=== PATIENT | female | born 1985 | race Caucasian/White ===

== ENCOUNTER 2021-10-01 15:31 | Emergency (ER) | payer OTHER, SELFPAY ==
[2021-10-01 17:22] VITALS: BP 119/70; PULSE 65; RESP 18; TEMP 36.9; O2SAT 100; BMI 32.5
[2021-10-01 17:42] LABS: MANUAL DIFF FLAG NO
--- NOTE | 2021-10-01 17:42 | ED_ITS ---
HPI - Recheck/Abnormal Lab/Rx General Chief Complaint: Recheck/Abnormal Lab/Rx Stated Complaint: dr sent over, pancreitis? Time Seen by Provider: 10/01/21 17:24 Source: patient Mode of arrival: ambulatory Limitations: no limitations History of Present Illness HPI narrative: Patient is a 36 year old female presenting to the emergency department today with a possible abnormal lab value. Patient states that she was called and told that she had elevated Lipase and she should report to the ED. Patient denies any dizziness, lightheadedness, abdominal pain, nausea, vomiting, fever, chills, blurry vision, double vision, loss of vision, chest pain, difficulty breathing, shortness of breath, back pain, night sweats, pain with urination, increased urinary frequency, increased urinary urgency, blood in her urine or stool, syncope or a near syncopal episode, recent trauma or falls, bowel incontinence, bladder incontinence, bowel retention, bladder retention, or any other complaints at this time. Patient states that she was having nausea and vomiting a few days ago but that has completely resolved now and she is able to eat and drink without any issue. Related Data Allergies Allergy/AdvReac Type Severity Reaction Status Date / Time gabapentin [GABAPENTIN] Allergy Unknown SWELLING Verified 10/01/21 17:21 Review of Systems Constitutional: Constitutional: Reports no additional constitutional complaints, Denies chills, Denies fever(s) and Denies night sweats Eyes: Eyes: Reports no additional eye complaints, Denies blurry vision, Denies change in vision, Denies diplopia, Denies eye discharge, Denies loss of vision and Denies eye pain ENT: Denies dizziness Cardiovascular: Cardiovascular: Reports no additional cardiovascular complaints, Denies chest pain, Denies lightheadedness, Denies Loss of Consciousness and Denies dyspnea Respiratory: Respiratory: Reports no additional respiratory complaints and Denies dyspnea Gastrointestinal: Gastrointestinal: Reports no additional gastrointestinal complaints, Denies abdominal pain, Denies melena, Denies hematochezia, Denies change in bowel habits and Denies change in stool character Genitourinary: Genitourinary: Denies hematuria, Denies urinary frequency, Denies dysuria, Denies urinary incontinence, Denies urinary hesitancy and Denies urinary urgency Musculoskeletal: Musculoskeletal: Reports no additional musculoskeletal c omplaints, Denies numbness and Denies tingling Neurologic: Denies dizziness, Denies loss of vision, Denies numbness and Denies tingling Psychiatric: Psychiatric: Reports no additional psychiatric complaints Endocrine: Endocrine: Reports no additional endocrine complaints Hematologic/Lymphatic: Hematologic/Lymphatic: Reports no additional hematologic/lymphatic complaints Allergic/Immunologic: Allergic/Immunologic: Reports no additional allergic/immunologic complaints [facility] Past Medical History Attestation statement: The following information was validated with the patient. Source: old records reviewed Social History Social History Advance Directives: No Advance Directives Information Provided: No Patient : No Physical Exam Vital Signs: Vital Signs: Last Vital Signs Temp 98.5 F 10/01/21 17: Pulse 65 10/01/21 17:22 Resp 18 10/01/21 17:22 BP 119/70 10/01/21 17:22 Pulse Ox 100 10/01/21 17:22 BMI result Body Mass Index 32.5 Const: General: cooperative, no acute distress, alert and awake Nutritional Appearance: well nourished Orientation/consciousness: patient oriented x3 Limitations: no limitations HENMT: Head: Yes normal to inspection and Yes atraumatic Ears: hearing grossly normal bilaterally and external ears normal General nose exam: Normal external nose present, no nasal discharge noted and no epistaxis Face and sinus: Yes normal facial exam, No abrasion and No laceration Mouth: Normal oral and palatal mucosa present, no drooling and no muffled voice Eyes: General: appearance normal, both eyes and all related structures Periorbital: periorbital findings normal Eyelids: Yes eyelids normal Conjunctivae: conjunctivae normal Pupils: Equal, round and reactive pupils present EOM: EOMs intact bilaterally Neck: Neck: Yes normal visual inspection, Yes full ROM and Yes no lymphadenopathy Chest: Chest palpation & inspection: normal inspection of the chest Resp: Effort & Inspection: normal respiratory effort and able to speak in complete sentences Auscultation: clear to auscultation bilaterally Cardio: Rate: regular rate Rhythm: regular rhythm GI: Inspection: Yes normal to inspection Palpation (GI): Soft to palpation, not firm and nontender Auscultation: normal bowel sounds Neuro: General: patient oriented x3 and moves all extremities Cranial nerves: Yes Equal, round and reactive pupils present Cognition (Neuro): normal cognition Motor exam (neuro): 5/5 motor strength present throughout Sensory Exam: Normal double simultaneous stimulation for sensation Coordination: [id number] test normal Extrem: General: Yes normal to inspection, Yes full ROM and Yes capillary refill normal Psych: Appearance: grossly normal Mental Status: mental status grossly normal Affect: normal affect Attitude: cooperative Thought process: Normal thought process present Thought content: Normal thought content present Insight: Good insight present (Psych) MDM - Recheck/Abnormal Lab/Rx MDM Narrative Medical decision making narrative: Patient is a 36 year old female presenting to the emergency department today with a possible elevated lipase. Patient's physical exam was unremarkable. Patient's blood work was unremarkable, including a normal lipase level. I explained my physical exam findings as well as all test results to the patient. I answered all questions asked by the patient. I stressed the importance of the patient taking her medication as prescribed. I stressed the importance of the patient following up with her primary care provider. I stressed the importance of the patient returning to the emergency department immediately if she were to develop any dizziness, shortness of breath, difficulty breathing, chest pain, blurry vision, loss of vision, nausea, vomiting, abdominal pain, fever, chills, back pain, or any other complaints. Patient verbalized agreement and understanding with this treatment plan and discharge. Differential Diagnosis Differential diagnosis: Unlikely encounter for medication refill (abnormal labs) Medical Records Attestation: I reviewed the patient's medical records. Lab Data Attestation: I reviewed the patient's lab results. Result diagrams: 10/01/21 17:30 10/01/21 17:30 Labs: Lab Results 10/01/21 10/01/21 Range/Units 17:30 17:30 WBC 7.7 (4.8-10.8) X10*3/uL RBC 4.28 (4.20-5.50) X10*6/uL Hgb 12.2 (12.0-16.0) g/dl Hct 38.4 (37.0-47.0) % MCV 89.7 (80.0-98.0) fL MCH 28.5 (27.0-33.0) pg MCHC 31.8 (31.0-35.0) g/dl RDW 13.8 (11.0-16.0) % Plt Count 264 (160-400) X10*3/uL MPV 11.0 (9.4-12.3) fL Immature Gran % (Auto) 0.3 (0.0-0.4) % Neut % (Auto) 62.2 (45-73) % Lymph % (Auto) 25.2 (20-40) % Webb % (Auto) 7.1 (2-11) % Eos % (Auto) 4.0 (0-4) % Baso % (Auto) 1.2 (0-2) % Lymph # (Auto) 2.0 (1.2-4.9) X10*3/uL Webb # (Auto) 0.6 (0.1-1.2) X10*3/uL Eos # (Auto) 0.3 (0.0-0.4) X10*3/uL Baso # (Auto) 0.1 (0.0-0.2) X10*3/uL Abs Immat Gran (auto) 0.02 (0.00-0.03) X10*3/uL Absolute Neuts (auto) 4.8 (2.0-8.3) x10*3/uL Absolute Nucleated RBC 0.000 (0.0-0.012) X10*3/uL Nucleated RBC % (auto) 0.0 (0.0-0.2) /100WBC Sodium 137 (135-145) mmol/L Potassium 4.5 (3.3-5.1) mmol/L Chloride 106 (96-108) mmol/L Carbon Dioxide 25 (22-29) mmol/L Anion Gap 11 L (12-20) BUN 14 (9-16) mg/dL Creatinine 0.75 (0.5-1.4) mg/dL Estim Creat Clear Calc 105.1 Estimated GFR > 60 Random Glucose 91 (60-115) mg/dL Calcium 9.3 (8.4-10.2) mg/dL Lipase 16 (8-78) U/L Discharge Plan Discharge Clinical Impression: Adult general medical exam Patient Disposition: Home, Self-Care Instructions: Normal Exam (ED) Additional Instructions: Follow up with your primary care provider. Return to the emergency department immediately if your symptoms worsen or if you develop any dizziness, shortness of breath, difficulty breathing, chest pain, blurry vision, loss of vision, nausea, vomiting, abdominal pain, fever, chills, back pain, or any other complaints. Referrals: Ivonne Medel DO [Primary Care Provider] - 2 days Print Language: Albanian
[2021-10-01 17:44] LABS: Basophils Absolute Auto 0.1 X10*3/uL (0.0-0.2); Basophils Percent Auto 1.2 % (0-2); Eosinophils Absolute Auto 0.3 X10*3/uL (0.0-0.4); Hematocrit 38.4 % (37.0-47.0); Hemoglobin 12.2 g/dl (12.0-16.0); Imm Gran Abs Auto 0.02 X10*3/uL (0.00-0.03); Imm Gran Pct Auto 0.3 % (0.0-0.4); Lymphocytes Percent Auto 25.2 % (20-40); Mean Corpuscular HGB Conc 31.8 g/dl (31.0-35.0); Mean Corpuscular Hemoglobin 28.5 pg (27.0-33.0); Mean Corpuscular Volume 89.7 fL (80.0-98.0); Monocytes Absolute Auto 0.6 X10*3/uL (0.1-1.2); Monocytes Percent Auto 7.1 % (2-11); Neutrophils Absolute Auto 4.8 x10*3/uL (2.0-8.3); Neutrophils Percent Auto 62.2 % (45-73); Platelet Count 264 X10*3/uL (160-400); Red Blood Count 4.28 X10*6/uL (4.20-5.50); Red Cell Distribution Width 13.8 % (11.0-16.0); White Blood Count 7.7 X10*3/uL (4.8-10.8)
[2021-10-01 17:58] LABS: Anion Gap 11 (12-20); Blood Urea Nitrogen 14 mg/dL (9-16); Calcium 9.3 mg/dL (8.4-10.2); Carbon Dioxide 25 mmol/L (22-29); Chloride 106 mmol/L (96-108); Creatinine Clr Calc Pharmacy 105.1; Estimated Glomerular Filt Rate > 60; Glucose Random 91 mg/dL (60-115); Lipase 16 U/L (8-78); Potassium 4.5 mmol/L (3.3-5.1); Sodium 137 mmol/L (135-145)
== END 2021-10-01 18:22 | disposition home or self-care (01) ==
PROVIDERS: Emergency Provider Emergency Medicine; PCP Family Medicine
DX: Z03.89 Encounter for observation for other suspected diseases and conditions ruled out (principal)
CPT/HCPCS: 36415; 80048; 83690; 85025; 99283

== ENCOUNTER 2022-01-28 14:58 | Outpatient (REF) | payer OTHER, SELFPAY ==
--- NOTE | ~2022-01-28 | US_ITS ---
EXAMINATION: US PELVIS CLINICAL INFORMATION: Left lower quadrant pain. COMPARISON: None TECHNIQUE: Ultrasound of the pelvis is performed using both transabdominal and transvaginal transducers along with Doppler. Transvaginal imaging is performed due to inadequate visualization transabdominally. FINDINGS: Uterus: The uterus is anteverted, anteflexed and measures 9.4 cm in length, 4.2 cm in AP and 5.1 cm in transverse dimension. The double wall endometrial thickness is 1.0 cm. The uterus is smooth in contour and has normal myometrial echogenicity. No visible fibroid. There are small nabothian cysts seen in the cervix. Adnexa: Both ovaries are visualized. There is normal color flow to the adnexa. There is no ovarian torsion. There is no pelvic ascites or fluid collection. Right ovary measures 3.4 x 2.3 x 3.0 cm and volume 12.3 mL. There is an anechoic cyst measuring 1.1 x 1.1 x 1.2 cm, likely simple cyst. There is a corpus luteal cyst measuring 1.4 x 1.3 x 1.7 cm. Left ovary measures 2.9 x 1.8 x 1.9 cm and volume 5.2 mL. It appears unremarkable. Previously left ovary measured 2.6 x 1.5 x 2.6 cm. There is moderate amount of free fluid in the cul-de-sac. US/US pelvic and transvaginal IMPRESSION: Unremarkable uterus. Small nabothian cysts in the cervix. Simple cyst and corpus luteal cyst right ovary. Moderate free fluid in the cul-de-sac.
== END 2022-01-28 14:59 | disposition home or self-care (01) ==
LOC: HO.US 14:58
PROVIDERS: PCP Nurse Practitioner Family; Visit Provider Emergency Medicine
DX: N92.0 Excessive and frequent menstruation with regular cycle (principal); N93.0 Postcoital and contact bleeding
CPT/HCPCS: 76830; 76856

== ENCOUNTER → 2022-07-15 08:57 | Outpatient (BNVA) | payer OTHER, SELFPAY | PROVIDERS: PCP Family Medicine; Referring Provider Family Medicine; Visit Provider Internal Medicine Cardiovascular Disease | DX: R07.89 Other chest pain (principal) | CPT/HCPCS: 93005; 99202 ==

== ENCOUNTER → 2022-10-29 08:45 | Outpatient (REF) | payer OTHER, SELFPAY ==
--- NOTE | 2022-10-29 08:48 | CA_ITS ---
Transthoracic Echocardiogram Patient (Last, First, Middle): Hodan Gomes, Gender: Female Date of : 1985 Age: 37 Procedure Date: 10/29/2022 Procedure Type: Transthoracic Echocardiogram Location: OP Height: 160.02 cm Weight: 86.18 kg BSA: 1.89 m2 Heart Rate: bpm BP: 102 / 70 mmHg Barytes Grinder: TO Referring MD: Ivonne Medel DO Symptoms: R07.9 CHEST PAIN Study Quality: Fair ECG Rhythm: Sinus Conclusions: - The left ventricular systolic function is normal. The calculated ejection fraction is 62% by biplane method. - No obvious valvular pathology seen on this study. Findings Left Ventricle Normal left ventricular cavity size. There is normal left ventricular wall thickness. The left ventricular systolic function is normal. The calculated ejection fraction is 62% by biplane method. There is no evidence of regional wall motion abnormalities. Diastolic function is normal for age. LV peak GLS -18.9%. Right Ventricle Normal right ventricular cavity size and systolic function. Atria Both atria are normal in size. Aortic Valve There is a normal trileaflet aortic valve. There is no aortic valve stenosis. There is no aortic valve regurgitation. Mitral Valve The mitral valve appears normal. There is no mitral valve regurgitation. There is no mitral valve stenosis. Pulmonic Valve The pulmonic valve is likely normal. Tricuspid Valve Normal tricuspid valve structure. There is trace tricuspid valve regurgitation. There is no evidence of pulmonary hypertension. Great Vessels The asc aorta is normal in size. Venous The inferior vena cava is normal in size and collapses greater than 50% with inspiration. Pericardium/Pleural There is no evidence of pericardial effusion. Prior Study Comparison No significant change compared to prior study dated: 06/24/2010. Recommendations, Care & Conclusions No obvious valvular pathology seen on this study. Measurements 2D Linear Measurements IVSd: 0.81 0.6-0.9/0.6-1.0 cm LVIDd: 4.90 3.9-5.3/4.2-5.9 cm LVIDd Index: 2.59 2.4-3.2/2.2-3.1 cm/m2 LVIDs: 3.37 2.0-3.6 cm LVPWd: 0.73 0.7-1.1 cm LA Diam: 3.60 2.7-3.8/3.0-4.0 cm LAIDs Index: 1.90 1.5-2.3 cm/m2 LV Mass: 155.16 67-162/88-224 g LV Mass Index: 82.10 43-95/49-115 g/m2 LVOT Diam: 2.20 3.0+(-)1.3 cm 2D Systolic Function EF 4C: 57.90 >55% EF 2C: 64.40 >55% EF BiP: 61.50 >55% Mitral Valve MV Pk E: 0.65 MV PK A: 0.45 MV Decel Time: 173.00 E/A: 1.40 E'Lateral: 13.70 E'Medial: 11.60 E/E' Med: 5.60 E/E' Lat: 4.70 PHT: 51.00 MVA PHT: 4.31 Decel Camp: 3.74 Aortic Valve AoV Pk Sanchez: 1.19 AoV Mn Sanchez: 0.78 AoV VTI: 0.24 AoV Pk Grad: 6.00 Aov Mn Grad: 3.00 CHRISTIANO Cont.VTI: 3.20 LVOT LVOT Pk Sanchez: 0.91 LVOT Mn Sanchez: 0.64 LVOT VTI: 0.20 LVOT Pk Grad: 3.00 LVOT Mn Grad: 2.00 LVOT Diam: 2.20 LVOT Area: 3.80 Diastolic Function MV Pk E: 0.65 MV Pk A: 0.45 E/A: 1.40 E'Medial: 11.60 E/E' Med: 5.60 E' Laterial: 13.70 E/E' Lat: 4.70 Right Ventricle TAPSE (mm): 20.80 TVS' Sanchez: 13.10 Tricuspid Valve TR Pk Sanchez: 1.66 TR Pk Grad: 11.00 RA Press: 3.00 RVSP: 14.00 Great Vessels Aorta Sinus of Valsalva: 3.37 2.0-3.[address] Ridge: 3.31 1.7-3.4 cm Ao Asc: 3.30 2.1-3.4 cm Ao Arch: 3.20 Updated in Other Vendor System with Status of Final Adrien Angel MD electronically signed on 10/30/2022 12:07:12 PM with status of Final
== END ==
LOC: HO.CARD 08:45
PROVIDERS: PCP Family Medicine; Visit Provider Family Medicine
DX: R07.9 Chest pain, unspecified (principal)
CPT/HCPCS: 93306; 93356

== ENCOUNTER 2023-03-16 10:24 | Outpatient (REF) | payer OTHER, SELFPAY ==
[2023-03-19 21:33] LABS: HPV mRNA E6/E7 rflx Not Detected (Not Detected)
== END 2023-03-16 10:25 | disposition home or self-care (01) ==
LOC: HO.HHCLNP 10:24
PROVIDERS: Visit Provider Advanced Practice Midwife
DX: Z12.4 Encounter for screening for malignant neoplasm of cervix (principal); Z11.51 Encounter for screening for human papillomavirus (HPV)
CPT/HCPCS: 87624; 88142

== ENCOUNTER 2023-09-09 08:56 | Outpatient (REF) | payer OTHER, SELFPAY ==
--- NOTE | ~2023-09-09 | XR_ITS ---
EXAMINATION: XR LUMBOSACRAL SPINE WITH OBLIQUES CLINICAL INFORMATION: Low back pain. Right-sided sciatica. COMPARISON: CT of the abdomen and pelvis May 2019 x-ray the lumbar spine from 2011 TECHNIQUE: AP, both oblique, and lateral views of the lumbar spine. Lateral view of the lumbosacral junction. FINDINGS: Bone alignment is normal. No fracture or dislocation. Disc space narrowing at L5-S1.. Lower lumbar spine facet arthritis. Gallstone. XR/XR lumbar spine 4V min IMPRESSION: Degenerative disc disease at L5-S1 and lower lumbar spine facet arthritis. Gallstone.
== END 2023-09-09 08:57 | disposition home or self-care (01) ==
LOC: HO.HHCX 08:56
PROVIDERS: Visit Provider Registered Nurse
DX: M54.41 Lumbago with sciatica, right side (principal); G89.29 Other chronic pain
CPT/HCPCS: 72110

== ENCOUNTER 2023-10-21 08:43 | Outpatient (REF) | payer OTHER, SELFPAY ==
--- NOTE | ~2023-10-21 | US_ITS ---
EXAMINATION: US ABDOMEN COMPLETE CLINICAL INFORMATION: Chronic abdominal pain. Incidental finding of gallstone on lumbar x-ray. COMPARISON: X-ray lumbar spine 09/09/2023. CT abdomen and pelvis 05/30/2019. TECHNIQUE: Real-time imaging of the abdominal viscera. FINDINGS: PANCREAS: Normal. ABDOMINAL AORTA: The proximal, mid, and distal segments are normal in caliber. INFERIOR VENA CAVA: Visualized portions are normal. LIVER: The liver is normal in size. The liver contour is normal. Parenchymal echogenicity is normal. There are 2 homogeneously hyperechoic liver lesions measuring 1.6 x 2.1 x 1.8 cm in the left hepatic lobe and 0.9 x 0.7 x 0.9 cm in the right hepatic lobe. On prior CT from 05/30/2019 there is a 1.7 cm low-density observation in the left hepatic lobe that could correlate with the abnormality in the left hepatic lobe in the current examination. There is no intrahepatic biliary duct dilatation seen. GALLBLADDER: Decompressed and completely filled with calculi that generate posterior shadowing that limits evaluation of the gallbladder wall. No pericholecystic free fluid. Negative Morris's sign. COMMON BILE DUCT: Normal in caliber measuring 0.3 cm in diameter. RIGHT KIDNEY: Normal. No hydronephrosis. No renal calculi or focal parenchymal lesions. The kidney measures 9.9 cm in maximum dimension. LEFT KIDNEY: Normal. No hydronephrosis. No renal calculi or focal parenchymal lesions. The kidney measures 10.2 cm in maximum dimension. SPLEEN: Normal. The spleen measures 11.0 cm in maximum dimension. FREE FLUID: None. US/US abdomen complete IMPRESSION: 1. There are 2 homogeneously hyperechoic liver lesions, the largest in the left hepatic lobe measuring 2.1 cm that could represent hemangiomas. Recommend further characterization with an abdominal MRI with and without IV contrast. 2. The gallbladder is completely filled with calculi which limits evaluation of the gallbladder wall. However, no pericholecystic free fluid and negative Morris's sign is reported to be negative.
== END 2023-10-21 08:44 | disposition home or self-care (01) ==
LOC: HO.US 08:43
PROVIDERS: PCP Family Medicine; Visit Provider Registered Nurse
DX: R10.84 Generalized abdominal pain (principal)
CPT/HCPCS: 76700

== ENCOUNTER 2023-10-26 13:42 | Outpatient (REF) | payer OTHER, SELFPAY | END 2023-10-26 13:43 | disposition home or self-care (01) | LOC: HO.CHCLNP 13:42 | PROVIDERS: Visit Provider Advanced Practice Midwife | DX: N89.8 Other specified noninflammatory disorders of vagina (principal) | CPT/HCPCS: 36415; 81513 ==

== ENCOUNTER 2023-10-27 08:18 | Outpatient (REF) | payer OTHER, SELFPAY ==
--- NOTE | ~2023-10-27 | MM_ITS ---
EXAMINATION: MM DIAGNOSTIC DIGITAL BREAST TOMOSYNTHESIS, BILATERAL US BREAST LIMITED, BILATERAL MAMMOGRAPHY: CLINICAL INFORMATION: Patient 38-year-old female, complaining of entire left breast pain x5 months, although order states upper inner and upper lower quadrants left breast. Patient baseline exam. COMPARISON: Mammography: None. Baseline exam. TECHNIQUE: Digital breast tomosynthesis is performed in both the craniocaudal and mediolateral oblique views along with computer-aided detection (CAD). Synthesized 2D images are generated from the tomosynthesis. FINDINGS: The breasts are heterogeneously dense, which may obscure small masses (ACR BI-RADS breast composition Category c). In the right breast, there are 2 directly abutting circumscribed masses in the approximate 9:00 axis, middle depth, the larger measuring approximately 1.0 cm. These are likely benign, such as cysts. Otherwise, no suspicious masses, suspicious grouped calcifications, or areas of architectural distortion are identified. There is a small amount of tissue density in the right axilla, which may be accessory breast tissue. It is not masslike. In the left breast, no suspicious masses, suspicious grouped calcifications, or areas of architectural distortion are identified. There is no mammographic abnormality in the regions of breast pain, inner quadrants. ULTRASOUND: CLINICAL INFORMATION: As above. COMPARISON: No prior. TECHNIQUE: Targeted sonographic evaluation was performed using a high frequency linear transducer. Right breast was scanned with attention to the outer quadrants, left breast was scanned with attention to the inner quadrants in the regions of breast pain. Selected archived documentation. FINDINGS: RIGHT BREAST: There is a simple cyst in the 9:00 axis, 5 cm from the nipple, measuring 1.0 cm in diameter. Abutting mass, 9:00 axis, 10 cm from the nipple, is a 4 mm circumscribed mildly hypoechoic oval complicated cyst versus mass, with no definite posterior features or internal color Doppler signal. This is probably benign and representing a benign complex cyst versus fibroadenoma. In the 11:00 axis, 6 cm from the nipple, there is a mildly complex cyst measuring 5 mm in diameter with good through transmission and no internal color Doppler flow. This is probably benign. LEFT BREAST: There is heterogeneously dense fibroglandular tissue. No mass, cystic abnormality, abnormal shadowing, or other abnormality identified. No correlate to the regions of breast pain is identified. MM/MM tomosynthesis diagnostic BI IMPRESSION: -There are no findings suspicious for malignancy in either breast. -There are 2 mildly complex cysts versus small fibroadenomas in the right breast 9:00 axis, 10 cm from the nipple, 11:00 axis, 6 cm from the nipple. Six-month interval follow-up targeted right breast ultrasound recommended to ensure stability. -There is a simple cyst in the right breast 9:00 axis measuring 1.0 cm. This correlates with the mammographic abnormality. -There are no mammographic or sonographic abnormalities in the left breast to correlate with the regions of breast pain. Recommend clinical management. OVERALL ASSESSMENT: Mammography: BI-RADS 3 - Probably benign finding(s) - 6 month follow-up suggested Ultrasound: BI-RADS 3 - Probably benign finding(s) - 6 month follow-up suggested RECOMMENDATION: 6 Month F/U This patient's information was entered into a reminder system with a target due date for their next mammogram.
== END 2023-10-27 08:19 | disposition home or self-care (01) ==
LOC: HO.MAMMO 08:18
PROVIDERS: PCP Family Medicine; Visit Provider Family Medicine
DX: N64.4 Mastodynia (principal)
CPT/HCPCS: 76642; 77062; 77066

== ENCOUNTER → 2023-10-27 08:30 | Outpatient (BNV) | payer OTHER, SELFPAY | PROVIDERS: PCP Family Medicine; Visit Provider Radiology Diagnostic Radiology | DX: N60.01 Solitary cyst of right breast (principal); R92.333 Mammographic heterogeneous density, bilateral breasts; N64.4 Mastodynia | CPT/HCPCS: 76642; 77066; G0279 ==

== ENCOUNTER 2023-11-11 09:47 | Outpatient (AMB) | payer OTHER, SELFPAY ==
--- NOTE | 2023-11-11 09:49 | A.OFFVIS_ITS ---
Intake Vital Signs 11/11/23 09:57 Height 5 ft 3 in Weight 212 lb BMI 37.6 BP 124/70 Blood Pressure Location Lt brachial Position Sitting Intake Visit Reasons: Gallstones, Breast pain Intake Note: This patient presents for an assessment for Gallstones, Breast pain. Pt c/o; reports left sided abdominal pain, reports nausea, reports no vomiting, reports no loss appetite, reports left breast pain but Breast US showed cyst on the right breast. 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 She actually had undergone a mammogram and ultrasound showing what appeared to be benign looking cysts on the right breast. She denies any palpable mass or any nipple or skin changes. She was noted to have an incidental finding of gallstones on a lumbar x-ray for her chronic back pain. These gallstones were seen on a CT scan which were ordered thereafter. She denies any pain on the right side of her abdomen. She does admit to some occasional pain on the left side. She denies GI complaints. She does have a long history of fibromyalgia and has chronic pain all over her body she says. [facility] Medical History (Updated 11/11/23 @ 10:39 by Don Hinojosa MD) Morbid obesity Gallstones Pain of both breasts MDD (major depressive disorder) PTSD (post-traumatic stress disorder) Fibromyalgia Surgical History No pertinent past surgical history Family History Paternal Grandfather Colon cancer Maternal Aunt Ovarian cancer Paternal Grandmother Hypertension Diabetes Paternal Aunt Hypertension Diabetes Social History Household Members: Family and Children Housing: House Are you a primary home care manager to a significant other at home: No Do you presently have visiting nurse or other home services: No Alcohol intake: never Patient Tobacco Use Status: Never used Tobacco service: No Current occupational status: retired Female Reproductive History Menstrual Age of Menarche: 10 Date of last menstrual period: 11/04/23 Total pregnancies: 3 Full term: 3 Date of Mammogram: 10/27/23 Review of Systems Const Denies chills and Denies fever(s) Card Denies chest pain, Denies dyspnea and Denies dyspnea on exertion Resp Denies cough, Denies dyspnea and Denies dyspnea on exertion GI Denies hematochezia and Denies change in bowel habits Denies hematuria Musc Reports back pain, Reports myalgias, Reports arthralgias and Reports limited range of motion Neuro Denies focal weakness and Denies convulsions Psych Denies depression and Denies mood swings Physical Exam Vital Signs: Last Vital Signs BP 124/70 11/11/23 09:57 BMI result Body Mass Index 37.6 Const General: comfortable and no acute distress Orientation/consciousness: patient oriented x3 Neck Neck: Yes no lymphadenopathy Chest Other: No palpable breast masses, no nipple or skin changes, no axillary ly mphadenopathy Resp Auscultation: clear to auscultation bilaterally Cardio Rhythm: regular rhythm GI Palpation (GI): Soft to palpation, nontender and no guarding Neuro General: patient oriented x3 Assessment & Plan Assessment & Plan (1) Pain of both breasts: Code(s): N64.4 - Mastodynia Plan: She has chronic pain on both breasts consistent with mastodynia without any obvious underlying pathology. She does have small cyst on the right side of her breast but these are benign looking. She had been recommended to undergo a follow-up mammogram in 6 months. Otherwise, she does not have any palpable breast masses, or nipple or skin changes on examination. (2) Gallstones: Code(s): K80.20 - Calculus of gallbladder without cholecystitis without obstruction Plan: She has gallstones seen on imaging studies. She denies any right upper quadrant pain. I had a long discussion with her about the option of proceeding with cholecystectomy. I explained the technique of laparoscopic cholecystectomy and possible open cholecystectomy. I explained the risks including but not limited to bleeding, infections, injury to other organs including bowel, liver and the bile duct, retained stones, bile leak, as well as the benefits and alternatives At this time, she denies any symptoms so we will hold off on cholecystectomy. I did tell her to monitor this closely and to come back to the office if she starts to have symptoms of right upper quadrant pain She is comfortable with the plan. She was also advised on the benefits of weight loss. Coding Level of Care Code New Pt Level 4 (87024) Diagnoses Pain of both breasts N64.4 Gallstones K80.20
[2023-11-11 09:57] VITALS: BP 124/70; BMI 37.6
== END 2023-11-11 10:32 | disposition home or self-care (01) ==
PROVIDERS: PCP Family Medicine; Referring Provider Family Medicine; Visit Provider Surgery
DX: N64.4 Mastodynia (principal); K80.20 Calculus of gallbladder without cholecystitis without obstruction
CPT/HCPCS: 99204

== ENCOUNTER → 2023-11-11 09:47 | Outpatient (BNVA) | payer OTHER, SELFPAY | PROVIDERS: PCP Family Medicine; Referring Provider Family Medicine; Visit Provider Surgery | DX: R20.0 Anesthesia of skin (principal); M79.7 Fibromyalgia; K80.20 Calculus of gallbladder without cholecystitis without obstruction; N64.4 Mastodynia | CPT/HCPCS: 99202 ==

== ENCOUNTER 2023-11-11 11:17 | Outpatient (AMB) | payer OTHER, SELFPAY ==
--- NOTE | 2023-11-11 11:47 | MHC.OFFVIS ---
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 Patient report intermittent numbness and tingling in bilateral legs for over a year, she was seen by her PCP who referred patient to orthopedics. States at times she has shooting pain that radiates down his leg. Denies injury. Hx of fibromyalgia. Allergies gabapentin [GABAPENTIN] Allergy (Unknown, Verified 11/11/23 11:55) SWELLING Medication List - Last Reconciled 11/11/23 by Rosie Pinto MD acetaminophen ER 650 mg PO Q8H PRN amitriptyline 20 mg PO BEDTIME cetirizine 10 mg PO DAILY clobetasol 0.05% 1 ea topical BID ibuprofen 1 tab PO TID PRN risankizumab-rzaa (Skyrizi) 1 ea subcut [id number] HPI HPI Comments History of Present Illness Details History of fibromyalgia, all over pain. One year, without previous falls or injury, gradual onset of leg numbness. Described numbness/tingling and sometimes sharp intense pain on both legs, anterior thigh to toes. No foot drop. She has back pain, told to have disc and arthritis based on xray. No EMG to BLE. Allergy to gabapentin. Treatment so far: in PT now for the back pain NSAIDs hot showers, heating pads, PFSH Medical History (Updated 11/11/23 @ 12:02 by Rosie Pinto MD) Morbid obesity Gallstones Pain of both breasts MDD (major depressive disorder) PTSD (post-traumatic stress disorder) Fibromyalgia Surgical History No pertinent past surgical history Family History Paternal Grandfather Colon cancer Maternal Aunt Ovarian cancer Paternal Grandmother Hypertension Diabetes Paternal Aunt Hypertension Diabetes Social History Household Members: Family and Children Housing: House Are you a primary child caregiver private home to a significant other at home: No Do you presently have visiting nurse or other home services: No Alcohol intake: never Patient Tobacco Use Status: Never used Tobacco service: No Current occupational status: retired Female Reproductive History Menstrual Age of Menarche: 10 Review of Systems Const All systems reviewed & are unremarkable except as noted in HPI and below Physical Exam Constitutional: Patient appears to be in no acute distress, well nourished and well developed. Patient was appropriately conversant and oriented. Good historian. MSK: No specific abnormalities found on inspection of the spine and all extremities. No pain with palpation over the lumbar area. Lumbar ROM was full. Bilateral hip, knee and ankle ROM WNL. No ligamentous laxity or crepitance. No increased effusion. No tenderness on medial or lateral malleoli, Achillis tendon, plantar fascia, bilateral. No ankle instability. No footdrop. Able to stand on heels and toes. Strength is 5/5 in all muscle groups tested. No increased tone noted. Neurological: Neurologic examination of the upper and lower extremities was nonfocal with intact sensation, muscle stretch reflexes and without focal motor deficits . Sensory intact. Tillman?s negative bilaterally. Babinski was down going bilaterally. Clonus was negative. Gait is non-antalgic without loss of balance. Patient was able to perform heel walk and toe walk. Results Reviewed Results Reviewed: Ordering Physician: Emilie Loredo Date of Service: 09/09/23 Procedure(s): XR lumbar spine 4V min Accession Number(s): [id number] cc: Emilie Loredo~ EXAMINATION: XR LUMBOSACRAL SPINE WITH OBLIQUES CLINICAL INFORMATION: Low back pain. Right-sided sciatica. COMPARISON: CT of the abdomen and pelvis May 2019 x-ray the lumbar spine from 2011 TECHNIQUE: AP, both oblique, and lateral views of the lumbar spine. Lateral view of the lumbosacral junction. FINDINGS: Bone alignment is normal. No fracture or dislocation. Disc space narrowing at L5-S1.. Lower lumbar spine facet arthritis. Gallstone. XR/XR lumbar spine 4V min IMPRESSION: Degenerative disc disease at L5-S1 and lower lumbar spine facet arthritis. Gallstone. I reviewed records from the following: PCP Assessment & Plan Assessment & Plan (1) Fibromyalgia: Code(s): M79.7 - Fibromyalgia (2) Bilateral leg numbness: Code(s): R20.0 - Anesthesia of skin Plan Suspect symptoms are more paresthesias rather than true neurologic numbness. No footdrop. No signs of lumbar radiculopathy or myelopathy. Suspect still within spectrum of fibromyalgia. For completeness, we will check a few things including HbA1c, vitamin-D, vitamin B12, which may be common causes for neuropathy. We will schedule for EMG. Assessment and plan discussed with patient, and patient was agreeable. All questions were answered thoroughly. Rosie Pinto MD, JANNETTE Board Certified, [place] [employer] and Rehabilitation (ABPMR) Board Certified, [place] Board [employer] Electrodiagnostic Medicine (ABEM) Orders: Orders NE electromyogram (EMG) Today M79.7 - Fibromyalgia, R20.0 - Anesthesia of skin AMB Hemoglobin A1c Today M79.7 - Fibromyalgia, R20.0 - Anesthesia of skin, Z13.9 - Encounter for screening, unspecified NE nerve conduction velocity Today M79.7 - Fibromyalgia, R20.0 - Anesthesia of skin Vitamin D 25-OH Total Today M79.7 - Fibromyalgia, R20.0 - Anesthesia of skin Vitamin B12 and Folate Today M79.7 - Fibromyalgia, R20.0 - Anesthesia of skin Coding Level of Care Code New Pt Level 4 (47280) Diagnoses Fibromyalgia M79.7 Bilateral leg numbness R20.0
== END 2023-11-11 12:30 | disposition home or self-care (01) ==
PROVIDERS: PCP Family Medicine; Visit Provider Physical Medicine & Rehabilitation
DX: M79.7 Fibromyalgia (principal); R20.0 Anesthesia of skin
CPT/HCPCS: 99204

== ENCOUNTER 2024-03-27 10:28 | Outpatient (REF) | payer OTHER, SELFPAY ==
[2024-03-27 12:05] LABS: Hematocrit 36.7 % (37.0-47.0); Hemoglobin 12.3 g/dl (12.0-16.0); Mean Corpuscular HGB Conc 33.5 g/dl (31.0-35.0); Mean Corpuscular Volume 86.6 fL (80.0-98.0); Mean Platelet Volume 11.3 fL (9.4-12.3); Platelet Count 258 X10*3/uL (160-400); Red Blood Count 4.24 X10*6/uL (4.20-5.50); White Blood Count 6.4 X10*3/uL (4.8-10.8)
[2024-03-27 12:43] LABS: Ferritin 32 ng/mL (10-250); Iron 49 mcg/dL (30-160); Percent Iron Saturation 20 % (15-50); TSH reflex Free T4 2.89 uIU/mL (0.32-4.0); Total Iron Binding Capacity 241 mcg/dL (228-428); Unsaturated Iron Binding 192 ug/dL
== END 2024-03-27 10:29 | disposition home or self-care (01) ==
LOC: HO.HHCL 10:28
PROVIDERS: Visit Provider Advanced Practice Midwife
DX: N92.0 Excessive and frequent menstruation with regular cycle (principal)
CPT/HCPCS: 36415; 82728; 83540; 84443; 85027

== ENCOUNTER 2024-03-28 18:41 | Outpatient (REF) | payer OTHER, SELFPAY ==
--- NOTE | ~2024-03-28 | MR_ITS ---
EXAMINATION: MR LUMBAR SPINE WITHOUT CONTRAST CLINICAL INFORMATION: Low back pain radiating to the bilateral lower extremities. COMPARISON: Lumbar radiographs 09/09/2023 TECHNIQUE: MRI of the lumbar spine was obtained using routine sequences without the administration of intravenous contrast. FINDINGS: There is likely transitional lumbosacral anatomy with hypoplastic T12 ribs and questionable pseudoarticulation between the right L5 transverse process and the sacrum. For the purposes of this examination, the L5-S1 intervertebral disc space is visualized on axial series 8 image 23. The normal lumbar lordosis is preserved. Shallow dextrocurvature of the lumbar spine. Lumbar vertebral body heights are maintained. No expansile or destructive osseous lesion. The conus medullaris and cauda equina nerve roots are unremarkable; the conus terminates at the level of L1. L1-L2: No significant spinal canal or neural foraminal stenosis. L2-L3: Trace disc bulge and mild facet arthropathy with ligamentum flavum redundancy. The spinal canal and neural foramen are patent. L3-L4: Disc bulge with small right central disc protrusion with annular fissure. Facet arthropathy with ligamentum flavum redundancy. Narrowing of the lateral recesses. The central canal is otherwise patent. No significant neural foraminal stenosis. L4-L5: Disc bulge and osteophytic ridging with facet arthropathy and ligamentum flavum redundancy. Narrowing of the left lateral recess approximating the descending left L5 nerve root. The central canal is otherwise patent. Mild narrowing of the neural foramen. L5-S1: Disc bulge with right subarticular annular fissure. Narrowing of the lateral recesses in close approximation to the descending S1 nerve roots. The central canal is otherwise patent. Facet arthropathy. The neural foramen are not significantly narrowed. Cholelithiasis. Trace pelvic free fluid. 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 Numbering system for this examination as described above. If surgery is considered, total spine radiographs are recommended to ensure accurate spine labeling. Mild multilevel degenerative changes of the lumbar spine as described above. No high-grade spinal canal or neural foraminal stenosis. Cholelithiasis. Electronically signed by: Trung Flowers MD 04/11/2024 09:07 PM EDT
== END 2024-03-28 18:42 | disposition home or self-care (01) ==
LOC: HO.MRI 18:41
PROVIDERS: PCP Family Medicine; Visit Provider Family Medicine
DX: M54.42 Lumbago with sciatica, left side (principal); M54.41 Lumbago with sciatica, right side; G89.29 Other chronic pain
CPT/HCPCS: 72148

== ENCOUNTER 2024-07-11 06:51 | Emergency (ER) | payer OTHER, SELFPAY ==
[2024-07-11 06:54] VITALS: BP 133/73; PULSE 72; RESP 20; TEMP 36.3; O2SAT 99; BMI 39.0
[2024-07-11 07:14] LABS: MANUAL DIFF FLAG NO
[2024-07-11 07:18] LABS: Basophils Absolute Auto 0.1 X10*3/uL (0.0-0.2); Eosinophils Absolute Auto 0.3 X10*3/uL (0.0-0.4); Eosinophils Percent Auto 4.3 % (0-4); Hematocrit 38.1 % (37.0-47.0); Hemoglobin 12.6 g/dl (12.0-16.0); Imm Gran Abs Auto 0.01 X10*3/uL (0.00-0.03); Imm Gran Pct Auto 0.1 % (0.0-0.4); Lymphocytes Absolute Auto 1.9 X10*3/uL (1.2-4.9); Lymphocytes Percent Auto 27.1 % (20-40); Mean Corpuscular HGB Conc 33.1 g/dl (31.0-35.0); Mean Corpuscular Hemoglobin 28.6 pg (27.0-33.0); Mean Corpuscular Volume 86.6 fL (80.0-98.0); Mean Platelet Volume 10.3 fL (9.4-12.3); Monocytes Absolute Auto 0.4 X10*3/uL (0.1-1.2); Monocytes Percent Auto 6.2 % (2-11); Neutrophils Absolute Auto 4.3 x10*3/uL (2.0-8.3); Neutrophils Percent Auto 61.3 % (45-73); Platelet Count 310 X10*3/uL (160-400); Red Cell Distribution Width 13.4 % (11.0-16.0)
[2024-07-11 07:35] LABS: Anion Gap 10 (12-20); Blood Urea Nitrogen 13 mg/dL (9-16); Calcium 8.5 mg/dL (8.4-10.2); Carbon Dioxide 21 mmol/L (22-29); Chloride 110 mmol/L (96-108); Estimated Glomerular Filt Rate > 60; Glucose Random 102 mg/dL (60-115); Sodium 137 mmol/L (135-145)
[2024-07-11 07:38] LABS: HCG Quantitative < 2 mIU/mL
--- NOTE | 2024-07-11 07:51 | ED.GENADULT ---
HPI - General Adult General Chief complaint: General Medical Stated complaint: discharged large blood clot Time Seen by Provider: 07/11/24 07:10 Source: patient Mode of arrival: ambulatory Limitations: no limitations History of Present Illness HPI narrative: This is a 39 years old female presented to the emergency room stating that Wednesday she had heavy vaginal bleeding, the bleeding stopped on Wednesday she has no bleeding today ; she is concerned that it was a miscarriage. Denies any fever vomiting diarrhea Onset (ago): day(s) (2) Radiation: non-radiation Severity: mild Pain Consistency: now resolved Related Data Home Medications ?Medication ?Instructions ?Recorded ?Confirmed clobetasol 0.05 % topical ointment 1 ea topical BID 01/29/22 11/11/23 ibuprofen 800 mg tablet 1 tab PO TID PRN fever 01/29/22 11/11/23 risankizumab-rzaa 150 mg/mL 1 ea subcut [id number] 01/29/22 11/11/23 subcutaneous pen injector (Skyrizi) acetaminophen 650 mg 650 mg PO Q8H PRN Pain (Scale 07/15/22 11/11/23 tablet,extended release Score 4-6) amitriptyline 10 mg tablet 20 mg PO BEDTIME 07/15/22 11/11/23 cetirizine 10 mg tablet 10 mg PO DAILY 07/15/22 11/11/23 Allergies Allergy/AdvReac Type Severity Reaction Status Date / Time gabapentin [GABAPENTIN] Allergy Unknown SWELLING Verified 07/11/24 06:57 Review of Systems Constitutional: Constitutional: Reports no additional constitutional complaints Eyes: Eyes: Reports no additional eye complaints Genitourinary: Genitourinary: Reports other (vaginal bleeding now resolved) [facility] Past Medical History [facility] Narrative: fibromyalgia,PTSD Medical History Morbid obesity Gallstones Pain of both breasts MDD (major depressive disorder) PTSD (post-traumatic stress disorder) Fibromyalgia Surgical History No pertinent past surgical history Family History Family History Paternal Grandfather Colon cancer Maternal Aunt Ovarian cancer Paternal Grandmother Hypertension Diabetes Paternal Aunt Hypertension Diabetes Social History Social History Household Members: Family and Children Housing: House Are you a primary campground caretaker to a significant other at home: No Do you presently have visiting nurse or other home services: No Alcohol intake: never Patient Tobacco Use Status: Never used Tobacco Advance Directives: No Advance Directives Information Provided: No service: No Current occupational status: retired Physical Exam ED Vital Signs: Vital Signs - 24 hr 07/11/24 06:54 07/11/24 07:52 Temperature 97.4 F 98.0 F Pulse Rate 72 75 Respiratory Rate 20 18 Blood Pressure 133/73 108/58 L Pulse Oximetry 99 97 Oxygen Delivery Method Room Air Room Air BMI result Body Mass Index 39.0 Const General: cooperative Nutritional Appearance: well nourished Orientation/consciousness: patient oriented x3 HENMT Head: Yes normal to inspection Ears: hearing grossly normal bilaterally General nose exam: Normal external nose present Face and sinus: Yes normal facial exam Mouth: Normal oral and palatal mucosa present Teeth and gingiva: dentition normal Throat: Yes posterior oropharynx normal Neck Neck: Yes normal visual inspection Chest Chest palpation & inspection: normal inspection of the chest Resp Effort & Inspection: normal respiratory effort Auscultation: clear to auscultation bilaterally Cardio Jugular venous distension: no JVD Rate: regular rate Rhythm: regular rhythm GI Inspection: Yes normal to inspection Palpation (GI): Soft to palpation, not firm and nontender Percussion: Yes normal to percussion General: Yes no CVA tenderness Back/Spine/Pelvis Back: no CVA tenderness Pelvis: no pain with anterior-posterior compression Skin General skin exam: no rashes or lesions noted and elasticity normal Lesions: no lesions Rashes: no rashes Neuro General: patient oriented x3 Cranial nerves: Yes CN's II-XII intact bilaterally Course Reevaluation(s) Reevaluation #1: HCG negative hemoglobin and crit normal she can be discharged home, she has no bled since Wednesday so I do not think she needs pelvic exam Time: 07:58 Medical Decision Making Medical Decision Making MDM Narrative: Patient presented with vaginal bleeding that resolved yesterday check test CBC a chemistry Differential Diagnosis Differential Diagnoses: The differential diagnosis associated with the presentation includes Miscarriage/ectopic /dysfunctional uterine bleeding/. perimenopausal bleeding Admission/Observation Consideration of admission/observation: Escalation of care including admission/observation considered Lab Data MDM Lab Attestation statement: I reviewed the patient's lab results. 07/11/24 07:04 07/11/24 07:04 Labs: Lab Results 07/11/24 Range/Units 07:04 WBC 7.0 (4.8-10.8) X10*3/uL RBC 4.40 (4.20-5.50) X10*6/uL Hgb 12.6 (12.0-16.0) g/dl Hct 38.1 (37.0-47.0) % MCV 86.6 (80.0-98.0) fL MCH 28.6 (27.0-33.0) pg MCHC 33.1 (31.0-35.0) g/dl RDW 13.4 (11.0-16.0) % Plt Count 310 (160-400) X10*3/uL MPV 10.3 (9.4-12.3) fL Immature Gran % (Auto) 0.1 (0.0-0.4) % Neut % (Auto) 61.3 (45-73) % Lymph % (Auto) 27.1 (20-40) % [place] % (Auto) 6.2 (2-11) % Eos % (Auto) 4.3 H (0-4) % Baso % (Auto) 1.0 (0-2) % Lymph # (Auto) 1.9 (1.2-4.9) X10*3/uL [place] # (Auto) 0.4 (0.1-1.2) X10*3/uL Eos # (Auto) 0.3 (0.0-0.4) X10*3/uL Baso # (Auto) 0.1 (0.0-0.2) X10*3/uL Abs Immat Gran (auto) 0.01 (0.00-0.03) X10*3/uL Absolute Neuts (auto) 4.3 (2.0-8.3) x10*3/uL Absolute Nucleated RBC 0.000 (0.0-0.012) X10*3/uL Nucleated RBC % (auto) 0.0 (0.0-0.2) /100WBC Sodium 137 (135-145) mmol/L Potassium 4.0 (3.3-5.1) mmol/L Chloride 110 H (96-108) mmol/L Carbon Dioxide 21 L (22-29) mmol/L Anion Gap 10 L (12-20) BUN 13 (9-16) mg/dL Creatinine 0.85 (0.5-1.4) mg/dL Estim Creat Clear Calc 99.0 Estimated GFR > 60 Random Glucose 102 (60-115) mg/dL Calcium 8.5 (8.4-10.2) mg/dL Beta HCG, Quant < 2 mIU/mL Discharge Plan Discharge Clinical Impression: Vaginal bleeding Patient Disposition: Home, Self-Care Instructions: Dysfunctional Uterine Bleeding (ED) Additional Instructions: Your test was negative, your hemoglobin was normal, rest drink lots of fluids follow-up with your primary care physician Prescriptions: No Action ibuprofen 800 mg tablet 1 tab PO TID PRN (Reason: fever) clobetasol 0.05 % ointment 1 ea topical BID Skyrizi 150 mg/mL pen injector 1 ea subcut [id number] acetaminophen 650 mg tablet extended release 650 mg PO Q8H PRN (Reason: Pain (Scale Score 4-6)) amitriptyline 10 mg tablet 20 mg PO BEDTIME cetirizine 10 mg tablet 10 mg PO DAILY Referrals: Ivonne Medel DO [Primary Care Provider] - 2 days Stand Alone Forms: Work/School Release Print Language: [place]
[2024-07-11 07:52] VITALS: BP 108/58; PULSE 75; RESP 18; TEMP 36.7; O2SAT 97
[2024-07-11 08:16] VITALS: BP 108/58; PULSE 75; RESP 18; TEMP 36.7; O2SAT 97
--- OUTSIDE RECORDS SUMMARY | 2024-07-12 18:32 | XMS_ITS | Data Portability ---
Author Organization [employer], [place] in - [employer] Address [address] [place] [address] Care Team Providers Care Pearl Glue Operator Name Role Phone [facility] Referring Provider [facility] Referring Provider Assessment Encounter Date Assessment Date Assessment LastModified by Organization Details LastModified Time 09/19/2021 09/19/2021 I have reviewed and agree with the assessment and plan as documented by the small appliance assembly supervisor. I provided real-time medical direction for this encounter and was immediately available to provide additional phone-based assistance as needed. History as noted in EMR and by small appliance assembly supervisor. I would add / emphasize: 36F w/ is seen for NVD and mild stomach pain which occurred after eating and which is now improving. AVSS and tolerating PO well. Tx w/ zofran for mild ongoing nausea and advised ongoing PO hydration with precautions for ED presentation. pallfather Not available 09/19/2021 18:00:48 Plan of Treatment Reminders Order Date Submit Date Provider Last Modified By Organization Details Last Modified Time Details Appointments None record ed. Lab None record ed. Referral None record ed. Procedures None record ed. Surgeries None record ed. Imaging None record ed. Medication Orders None record ed. Patient TargetsNo targets recorded. Patient InstructionsNo instructions recorded. Reason for Referral None Reported. Medical Equipment None Reported. Medications Name Sig Start Date Stop Date Status Note LastModified by Organization Details LastModified Time amoxicillin 500 mg capsule TAKE 1 TABLET BY MOUTH EVERY 8 HOURS active Not Available Not Available No t Available cetirizine 10 mg tablet TAKE 1 TABLET BY MOUTH EVERY DAY active Not Available Not Available No t Available ibuprofen 800 mg tablet TAKE 1 TABLET BY ORAL ROUTE 3 TIMES EVERY DAY WITH FOOD NEEDED FOR PAIN AND/OR FEVER active Not Available Not Available No t Available penicillin V potassium 500 mg tablet TAKE 1 TABLET BY MOUTH THREE TIMES A DAY active Not Available Not Available Not Available acetaminophe n ER 650 mg tablet,exten ded release TAKE 1 TABLET BY MOUTH EVERY 8 HOURS NEEDED active Not Available Not Available No t Available methotrexate sodium 2.5 mg tablet TAKE 5 TABLETS BY MOUTH EVERY WEEK active Not Available Not Available No t Available amitriptylin e 10 mg tablet TAKE 2 TABLETS BY MOUTH EVERY DAY AT BEDTIME active Not Available Not Available No t Available baclofen 10 mg tablet TAKE 1 TABLET BY MOUTH THREE TIMES A DAY NEEDED FOR MUSCLE SPASM active Not Available Not Available No t Available triamcinolon e acetonide 0.1 % topical ointment APPLY THIN COAT TO AFFECTED AREA TWICE A DAY active Not Available Not Available No t Available calcipotrien e 0.005 % topical cream APPLY A THIN LAYER TO THE AFFECTED AREA(S) 2 TIMES EVERY DAY RUB IN GENTLY AND COMPLETELY active Not Available Not Available N ot Available Banophen 25 mg capsule TAKE 1 TABLET BY ORAL ROUTE UP TO 6 HOURS NEEDED FOR ITCHING active Not Available Not Available No t Available folic acid 1 mg tablet TAKE 1 TABLET BY MOUTH EVERY DAY active Not Available Not Available No t Available clobetasol 0.05 % topical ointment APPLY THIN COAT TO AFFECTED AREA TWICE A DAY active Not Available Not Available No t Available chlorhexidin e gluconate 0.12 % mouthwash TAKE 15 ML IN MOUTH AND SWISH-DO THIS TWICE A DAY AND SPIT OUT--DO NOT SWALLOW active Not Available Not Available No t Available Vitamin D3 50 mcg (2,000 unit) tablet TAKE 1 TABLET BY MOUTH EVERY DAY active Not Available Not Available No t Available Skyrizi 150 mg/mL subcutaneous pen injector active Not Available Not Available Not Available Vitals Date Recorded Heart rate Respiratory rate Oxygen saturation Oxygen saturation in Arterial blood by Pulse oximetry Systolic blood pressure Diastolic blood pressure Provider Name and Address Organization Details Last Updated DateTime 2 80 /min 18 /min 100 % 100 % 115 mm[Hg] 78 mm[Hg] Ted Morris MD [address] [facility],[address], [place], [address] [place], [place] - [employer] [facility] 2 17:57:47 Social History None recorded. Functional Status None recorded. Mental Status None recorded. Family History Nothing Reported. Medical History No medical history recorded. Gynecological HistoryNo gynecological history recorded. Obstetrics History GPAL:G 0 P 0 0 0 0 Past Encounters Encounter ID Performer Location Encounter Start Date Encounter Closed Date Diagnosis/Indication Diagnosis SNOMED-CT Code Diagnosis ICD10 Code [id number] Ted Morris MD [facility] [employer] [address] [place] [phone] 09/19/2021 17:55:45 02/17/2022 12:05:13 Nausea, vomiting and diarrhea 8996247 R11.2 R19.7 Health Concerns Section Related Observation LastModified by Organization Detai ls LastModified Time None Recorded Concern Status LastModified by Organization Details LastModified Time None Recorded Advance Directives Directive None Recorded Payers Encounter Date Sequence Insurance Name Policy Number Policy Baer Covered Member ID Baer Member ID Guarantor Name 09/19/2021 1 [facility] - DOS PRIOR TO 2022 - DUAL ELIGIBLE (MEDICARE REPLACEMENT/ADV ANTAGE - HMO) Hodan Gomes [id number] Hodan Gomes Notes Date Note Type Note Provider Name and Address Organization Details Recorded Time 09/19/2021 text/html Per referral:Patient reporting having bilateral leg pain, N/V, abd pain, watery diarrhea and feeling feverish since last night. Pt reports mouth feeling dry and unable to keep fluids down. Allergies: Gabapentin (Swelling of extremities) Per Industrial Organization Manager Kristina Carlos: dispatched to a female patient with complaints of nausea vomiting x1 day. upon arrival patient greeted crew at the door. patient is alert and oriented with a patent airway, skin is warm pink and dry. patient states she was having bad stomach pain yesterday. stomach pain is still present but has started to subside. patient complains of still having nausea and having vomited at 6:30 am today. vitals obtained and are HR: 80 RR: 18 SPO2: 100 on room air BP: 115/78. orthostatic vital signs obtained with no changes to blood pressure. patient states she ate at a restaurant yesterday and now has the same symptoms as the group she ate with. patient believes she may have food poisoning. contacted DR. Morris who advised to give 4 MG PO Zofran and advise patient to contact care team if symptoms did not change. red flags discussed with the patient and patient advised to be seen in the er if she experiences any of the red flags. completed by heriberto Morris MD [address] [place] [address],[address], [place], [phone], [employer] 09/19/2021 18:05:03 OBGyn Episode No OBEpisode recorded.
== END 2024-07-11 08:17 | disposition home or self-care (01) ==
PROVIDERS: Emergency Provider Emergency Medicine; PCP Family Medicine
DX: N93.9 Abnormal uterine and vaginal bleeding, unspecified (principal)
CPT/HCPCS: 36415; 80048; 84702; 85025; 99283; 99284

== ENCOUNTER 2024-07-13 09:38 | Outpatient (REF) | payer OTHER, SELFPAY ==
[2024-07-13 11:40] LABS: Hematocrit 37.7 % (37.0-47.0); Hemoglobin 12.6 g/dl (12.0-16.0); Mean Corpuscular HGB Conc 33.4 g/dl (31.0-35.0); Mean Corpuscular Hemoglobin 28.8 pg (27.0-33.0); Mean Corpuscular Volume 86.1 fL (80.0-98.0); Mean Platelet Volume 10.9 fL (9.4-12.3); Platelet Count 306 X10*3/uL (160-400); Red Blood Count 4.38 X10*6/uL (4.20-5.50); Red Cell Distribution Width 13.2 % (11.0-16.0); White Blood Count 6.2 X10*3/uL (4.8-10.8)
[2024-07-13 11:47] LABS: Estimated Average Glucose 97 mg/dL; Hemoglobin A1C 99.2783 umol/L; Total Hemoglobin (HGBA1C) 3220.6346 umol/L
[2024-07-13 12:04] LABS: Syphilis Screen Nonreactive (Nonreactive)
[2024-07-13 12:06] LABS: Alanine Aminotransferase 21 U/L (0-31); Albumin Level 3.9 g/dL (3.5-5.0); Alkaline Phosphatase 69 U/L (39-117); Anion Gap 8 (12-20); Aspartate Amino Transferase 20 U/L (5-31); Bilirubin Direct 0.2 mg/dL (0.0-0.5); Bilirubin Total 0.3 mg/dL (0.0-1.0); Blood Urea Nitrogen 11 mg/dL (9-16); Calcium 9.2 mg/dL (8.4-10.2); Carbon Dioxide 25 mmol/L (22-29); Chloride 108 mmol/L (96-108); Cholesterol 140 mg/dL (<200); Estimated Glomerular Filt Rate > 60; Glucose Random 91 mg/dL (60-115); HDL Cholesterol 58 mg/dL (>40); LDL Cholesterol Calculated 73 mg/dL (<100); Sodium 137 mmol/L (135-145); Total Protein 7.1 g/dL (6.5-8.0); Triglycerides 45 mg/dL (<150)
[2024-07-13 12:10] LABS: HIV AB/AG Nonreactive (Nonreactive); HIV Num 1 0.09 S/CO (0.00-0.99)
[2024-07-13 12:13] LABS: Free T4 (Free Thyroxine) 1.07 ng/dL (0.71-1.85); HBS Num1 168.93 mIU/mL (0-7.99); HBsAGNum1 0.36 S/CO (0.00-0.99); HCG Quantitative < 2 mIU/mL; Hepatitis B Surface Antigen Negative (Negative); Thyroid Stimulating Hormone 3.38 uIU/mL (0.32-4.0); Vitamin D 25-OH Total 11.7 ng/mL (>30); ~HepC Num1 0.09 S/CO (0.00-0.79); ~Hepatitis B Surface Antibody REACTIVE (Nonreactive); ~Hepatitis C Antibody Nonreactive (Nonreactive)
[2024-07-13 15:20] LABS: CT PCR NOT DETECTED (Not Detect.); NG PCR NOT DETECTED (Not Detect.)
[2024-07-14 12:30] LABS: CT PCR NOT DETECTED (Not Detect.); NG PCR NOT DETECTED (Not Detect.)
[2024-07-14 18:14] LABS: RPR Rapid Plasma Reagin NON-REACTIVE (NON-REACTIVE)
== END 2024-07-13 09:39 | disposition home or self-care (01) ==
LOC: HO.HHCL 09:38
PROVIDERS: Family Medicine; Visit Provider Advanced Practice Midwife
DX: Z32.00 Encounter for pregnancy test, result unknown (principal); Z68.37 Body mass index [BMI] 37.0-37.9, adult; Z11.3 Encounter for screening for infections with a predominantly sexual mode of transmission; Z13.1 Encounter for screening for diabetes mellitus
CPT/HCPCS: 36415; 80048; 80061; 80076; 82306; 83036; 84439; 84443; 84702; 85027; 86592; 86706; 86780; 86803; 87340; 87389; 87491; 87591

== ENCOUNTER 2024-09-12 08:36 | Outpatient (REF) | payer OTHER, SELFPAY ==
[2024-09-12] MEDS: gadobutroL 10 ML VIAL IVPUSH (09:09)
== END 2024-09-12 08:37 | disposition home or self-care (01) ==
LOC: HO.MRI 08:36
PROVIDERS: PCP Family Medicine; Visit Provider Family Medicine
DX: R16.0 Hepatomegaly, not elsewhere classified (principal)
CPT/HCPCS: 74183; A9585

== ENCOUNTER → 2024-09-12 08:36 | Outpatient (BNV) | payer OTHER, SELFPAY | PROVIDERS: PCP Family Medicine; Visit Provider Radiology Diagnostic Radiology | DX: R16.0 Hepatomegaly, not elsewhere classified (principal) | CPT/HCPCS: 74183 ==

== ENCOUNTER 2024-10-30 09:46 | Outpatient (AMB) | payer OTHER, SELFPAY ==
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
[2024-10-30 10:02] VITALS: BMI 39.0
== END 2024-10-30 10:48 | disposition home or self-care (01) ==
LOC: HO.HNS 09:46
PROVIDERS: PCP Family Medicine; Visit Provider Physician Assistant
DX: M54.9 Dorsalgia, unspecified (principal)
CPT/HCPCS: 99204

== ENCOUNTER → 2024-10-30 09:46 | Outpatient (BNVA) | payer OTHER, SELFPAY | PROVIDERS: PCP Family Medicine; Visit Provider Physician Assistant | DX: M54.50 Low back pain, unspecified (principal); G89.29 Other chronic pain | CPT/HCPCS: 99202 ==

== ENCOUNTER 2025-01-26 11:04 | Outpatient (AMB) | payer OTHER, SELFPAY ==
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
[2025-01-26 11:08] VITALS: BP 122/78; PULSE 80; RESP 16; O2SAT 99; BMI 39.1
--- OUTSIDE RECORDS SUMMARY | 2025-01-26 12:18 | XMS_ITS | Encounter Summary ---
Author Organization [employer] Address [address] [place] [address] [address] [place] [address] Care Team Providers Care Counseling Services Director Name Role Phone Ivonne Medel DO Primary Care Provider + [phone] Reason for Visit * Reason Comments Med Refill Encounter Details Date Type Department Care Team (Late st Contact Info) Description 09/23/2022 Refill [facility] [address] [place], [place] [phone] Ivonne Medel DO [address] [place], [place] [phone] Anxiety Social History Tobacco Use Types Packs/Day Years Used Date Smoking Tobacco: Never Smokeless Tobacco: Never Comments Unknown Sex and Gender Information Value Date Recorded Sex Assigned at Female 06/01/2022 10:17 AM EDT Legal Sex Female 10:17 AM EDT Gender Identity Female 06/01/2022 10:17 AM EDT Sexual Orientation Choose not to disclose 2021 10:17 AM EDT COVID-19 Exposure Response Date Recorded In the last 10 days, have yo u been in contact with someone who was confirmed or suspected to have Coronavirus/COVID-19? No / Unsure 09/09/2022 9:00 AM EST documented as of this encounter Plan of Treatment Upcoming Encounters Date Type Department Care Team (Late st Contact Info) Description 04/09/2025 9:15 AM EDT Office Visit [facility] [address] [place], [place] [phone] Stella Richardson CNM [address] [place], [place] [phone] documented as of this encounter Visit Diagnoses Diagnosis Anxiety Anxiety state, unspecified documented in this encounter Care Teams Counseling Services Director Relationship Specialty Start Date End Date Ivonne Medel DO [address] [place] [address] PCP - General Family Medicine 08/02/18 documented as of this encounter
== END 2025-01-26 12:07 | disposition home or self-care (01) ==
LOC: HO.PMC 11:05
PROVIDERS: PCP Family Medicine; Referring Provider Physician Assistant; Visit Provider Internal Medicine
DX: M54.12 Radiculopathy, cervical region (principal); M54.51 Vertebrogenic low back pain
CPT/HCPCS: 99204